=== PATIENT | male | born 1975 | race African-American/Black ===

== ENCOUNTER 2020-01-14 18:50 | Emergency (ER) | payer MEDICARE, MEDICAID, SELFPAY ==
[2020-01-14 18:54] VITALS: BP 132/83; PULSE 72; RESP 15; TEMP 36.8; O2SAT 99
--- NOTE | 2020-01-14 18:56 | ED.EPISTAXIS ---
HPI - Epistaxis General Chief complaint: Epistaxis Stated complaint: SHIVANI nosebleed Time Seen by Provider: 01/14/20 18:56 History of Present Illness HPI Narrative: Nose bleed since 10:30 AM today. Started after dialysis. Tried direct pressure without improvement. He gets heparin a dialysis otherwise no blood thinners. No weakness, dizziness, SOB. Related Data Home Medications Medication Instructions Recorded Confirmed gabapentin 600 mg PO BID 01/14/20 01/14/20 hydralazine 100 mg PO BID 01/14/20 01/14/20 labetalol 200 mg PO Q12H 01/14/20 01/14/20 lisinopril 20 mg PO BID 01/14/20 01/14/20 Allergies Allergy/AdvReac Type Severity Reaction Status Date / Time codeine AdvReac Unknown HIVES Verified 01/14/20 19:03 Review of Systems Review of Systems: All systems reviewed & are unremarkable except as noted in HPI and below Constitutional: Constitutional: Denies fatigue, Denies fever(s) and Denies weakness Cardiovascular: Cardiovascular: Denies chest pain Respiratory: Respiratory: Denies dyspnea Gastrointestinal: Gastrointestinal: Denies nausea and Denies vomiting Neurologic: Denies dizziness and Denies weakness PMFSH Past Medical History Medical History ESRD on dialysis Social History Social History Smoking status: Never smoker Exam Const: General: no acute distress and alert Nutritional Appearance: well nourished Orientation/consciousness: patient oriented x3 HENMT: Other: Clotted blood in left nares with some bleeding around clot. Neck: Neck: normal visual inspection Resp: Effort & Inspection: normal respiratory effort Auscultation: clear to auscultation bilaterally Cardio: Rate: regular rate Rhythm: regular rhythm Neuro: General: patient oriented x3, moves all extremities and CN's II-XI intact bilaterally Speech: normal speech Psych: Appearance: grossly normal and well kempt Mental Status: mental status grossly normal Affect: normal affect Attitude: cooperative Course Vital Signs Vital signs: Vital Signs Temperature 36.8 C 01/14/20 18:54 Pulse Rate 72 01/14/20 18:54 Respiratory Rate 15 01/14/20 18:54 Blood Pressure 132/83 01/14/20 18:54 Pulse Oximetry 99 01/14/20 18:54 Temperature 36.8 C 01/14/20 18:54 Pulse Rate 78 01/14/20 21:41 Respiratory Rate 18 01/14/20 21:41 Blood Pressure 138/72 01/14/20 21:41 Pulse Oximetry 99 01/14/20 21:41 Procedures Epistaxis Control left: Nose Prepped With: lidocaine and oxymetazoline Direct Inspection: yes and anterior source identified Clots Removed by: blowing nose Cautery Used: none Device Inserted: hemostatic balloon Device Size: 4 Patient Tolerated Procedure: well and no complications MDM - Epistaxis MDM Narrative Medical decision making narrative: Attempted packing with afrin soaked gauze, unsuccessful. Bleeding stopped with Rapid Rhino. I will refer him to ENT. Medical Records Attestation: I reviewed the patient's medical records. Discharge Plan Discharge Clinical Impression: Epistaxis Patient Disposition: Home, Self-Care Condition: Stable Instructions: Nosebleed (ED) Prescriptions: No Action gabapentin 600 mg Tablet 600 mg PO BID RF: 0 labetalol 200 mg Tablet 200 mg PO Q12H RF: 0 lisinopril 20 mg Tablet 20 mg PO BID RF: 0 hydralazine 100 mg Tablet 100 mg PO BID RF: 0 Follow-up/Referrals: Abundio Jo MD [Physician] - 3 Days [facility],Cintia Bryant MD [Primary Care Provider] -
[2020-01-14 21:41] VITALS: BP 138/72; PULSE 78; RESP 18; O2SAT 99
== END 2020-01-14 21:42 | disposition home or self-care (01) ==
PROVIDERS: Emergency Provider Emergency Medicine; PCP Internal Medicine
DX: R04.0 Epistaxis (principal); N18.6 End stage renal disease; Z99.2 Dependence on renal dialysis
CPT/HCPCS: 30901; 99282; A9270

== ENCOUNTER 2020-01-15 13:16 | Emergency (ER) | payer MEDICARE, MEDICAID, SELFPAY ==
[2020-01-15 13:22] VITALS: BP 157/90; PULSE 69; RESP 18; TEMP 36.9; O2SAT 99
[2020-01-15] MEDS: OXYMETAZOLINE HCL 0.05% NAS 15 ML BTL (*BKC) 1 SPRAY NASAL (13:59)
[2020-01-15 14:28] LABS: Basophils Percent Auto 0.5 % (0.2-1.2); Eosinophils Absolute Auto 0.3 K/mm3 (0-0.3); Eosinophils Percent Auto 4.1 % (0-4.4); Hematocrit 28.8 % (42.0-52.0); Hemoglobin 8.7 g/dL (14.0-18.0); Immature Granulocyte Absolute 0.05 K/mm3 (0.00-0.031); Immature Granulocyte Percent A 0.6 % (0-0.5); Lymphocytes Absolute Auto 0.94 K/mm3 (0.9-3.2); Lymphocytes Percent Auto 11.6 % (18.3-44.2); Mean Corpuscular HGB Conc 30.2 g/dl (32-36); Mean Corpuscular Hemoglobin 25.6 pg (26-34); Mean Corpuscular Volume 84.7 fl (80-100); Mean Platelet Volume 9.6 fl (7.4-10.4); Monocytes Percent Auto 12.2 % (2.6-8.5); Neutrophils Absolute Auto 5.8 K/mm3 (1.3-6.7); Platelet Count Result 117 k/mm3 (150-375); Red Cell Distribution Width 16.9 % (11.5-14.5); White Blood Count 8.1 K/mm3 (4.5-10.0)
--- NOTE | 2020-01-15 14:32 | ED.EPISTAXIS ---
HPI - Epistaxis General Chief complaint: Epistaxis Stated complaint: nosebleed, here last night Time Seen by Provider: 01/15/20 13:31 Source: patient Mode of arrival: ambulatory Limitations: no limitations History of Present Illness HPI Narrative: This is a 44-year-old male that presents to the emergency department for left-sided epistaxis since early yesterday morning. Reports he noted a nosebleed in the middle of the night. When he woke up he was continuing to have nosebleed. Eventually in the afternoon he went to [facility], but they waited for hours and were not seen. They went back home and eventually called 911 and were transferred to [facility] for evaluation. He had a Rhino Rocket placed last night. Reports it fell out sometime in the night and when he woke up this morning he was still having bleeding. Denies fever or weakness. Related Data Home Medications Medication Instructions Recorded Confirmed gabapentin 600 mg PO BID 01/14/20 01/14/20 hydralazine 100 mg PO BID 01/14/20 01/14/20 labetalol 200 mg PO Q12H 01/14/20 01/14/20 lisinopril 20 mg PO BID 01/14/20 01/14/20 Allergies Allergy/AdvReac Type Severity Reaction Status Date / Time codeine AdvReac Unknown HIVES Verified 01/14/20 19:03 Review of Systems Review of Systems: Narrative: CONSTITUTIONAL: Denies fever ENT: Reports epistaxis All systems reviewed & are unremarkable except as noted in HPI and below PMFSH Past Medical History Medical History ESRD on dialysis Social History Social History Smoking status: Never smoker Exam Narrative: Exam Narrative: GENERAL: Well-appearing, well-nourished, and in no acute distress. HEAD: Normocephalic, atraumatic. EYES: EOMI. ENT: Left nare with blood clot present, no active bleeding. Mucous membranes moist. Oropharynx with small amount of blood present. No active oozing or clots noted in the oropharynx EXTREMITIES: Normal range of motion. No edema. SKIN: Warm, dry, no rash. NEURO: No focal deficits. Alert and oriented x3. PSYCH: Normal mood and affect Course Vital Signs Vital signs: Vital Signs Temperature 98.5 F 01/15/20 13:22 Pulse Rate 69 01/15/20 13:22 Respiratory Rate 18 01/15/20 13:22 Blood Pressure 157/90 H 01/15/20 13:22 Pulse Oximetry 99 01/15/20 13:22 Temperature 98.5 F 01/15/20 13:22 Pulse Rate 69 01/15/20 13:22 Respiratory Rate 18 01/15/20 13:22 Blood Pressure 157/90 H 01/15/20 13:22 Pulse Oximetry 99 01/15/20 13:22 Procedures Epistaxis Control left: Epistaxis Control Date: 01/15/20 Epistaxis Control Time: 16:15 Nose Prepped With: oxymetazoline Direct Inspection: yes Clots Removed by: blowing nose Device Inserted: nasal tampon Device Size: 5 Patient Tolerated Procedure: well and no complications Complications: continued epistaxis (patient still having some mild oozing from the right nare) MDM - Epistaxis MDM Narrative Medical decision making narrative: Patient presents the emergency department for epistaxis. Had a Rhino Rocket placed yesterday that came out while he was sleeping. Patient's hemoglobin today is 8.7, which appears to be around his baseline. I did place a medium sized Rhino Rocket today in the left nare. He did continue to have some mild oozing from the right nare, but patient did not want to stay for any further intervention. He will be placed on oral antibiotics and is to follow-up with ENT. He was given warnings to return to the ER Lab Data Attestation: I reviewed the patient's lab results. Result diagrams: 01/15/20 14:19 Labs: Lab Results 01/15/20 01/15/20 Range/Units 14:19 14:19 WBC 8.1 (4.5-10.0) K/mm3 RBC 3.40 L (4.6-6.20) M/mm3 Hgb 8.7 L (14.0-18.0) g/dL Hct 28.8 L (42.0-52.0) % MCV 84.7 (80-100) fl
[2020-01-15 14:37] LABS: INR 1.3; Prothrombin Time 17.1 Seconds (11.1-14.7)
[2020-01-15 14:38] LABS: Partial Thromboplastin Time 33.4 SECONDS (22.3-36.8)
[2020-01-15] MEDS: diphenhydrAMINE HCl CAP 25 MG CAPSULE PO (15:39)
[2020-01-15] MEDS: METOCLOPRAMIDE HCL 5 MG TABLET PO (15:39)
[2020-01-15] MEDS: ACETAMINOPHEN 500 MG TABLET 1000 MG PO (16:29)
== END 2020-01-15 16:31 | disposition home or self-care (01) ==
PROVIDERS: Physician Assistant; Emergency Provider Emergency Medicine; PCP Internal Medicine
DX: R04.0 Epistaxis (principal); N18.6 End stage renal disease; Z99.2 Dependence on renal dialysis
CPT/HCPCS: 30901; 36415; 85025; 85610; 85730; 99283; A9270